=== PATIENT | male | born 1990 | race Caucasian/White ===

== ENCOUNTER 2018-05-07 19:09 | Emergency (ER) | payer SELFPAY ==
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
[2018-05-07 19:41] LABS: PLATELET COUNT 311 10^3/uL (150-400)
[2018-05-07 20:20] VITALS: BP 117/65
== END 2018-05-07 20:18 | disposition home or self-care (01) ==
DX: R56.9 Unspecified convulsions (principal); F17.200 Nicotine dependence, unspecified, uncomplicated
CPT/HCPCS: G0480

== ENCOUNTER 2018-05-13 07:25 | Emergency (ER) | payer SELFPAY ==
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
[2018-05-13 08:22] VITALS: BP 132/70
== END 2018-05-13 08:25 | disposition home or self-care (01) ==
DX: S60.221A Contusion of right hand, initial encounter (principal); F43.10 Post-traumatic stress disorder, unspecified; W22.8XXA Striking against or struck by other objects, initial encounter; Y99.9 Unspecified external cause status

== ENCOUNTER 2018-08-04 23:28 | Emergency (ER) | payer MEDICAID ==
[2018-08-04] MEDS ORDERED: LORazepam 1 MG TAB PO ONE (23:40)
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
[2018-08-05 00:03] LABS: PLATELET COUNT 221 10^3/uL (150-400)
[2018-08-05 07:00] VITALS: BP 112/64
--- NOTE | 2018-08-05 09:09 | ASMTTLCEVL ---
[facility] Evaluation - Basic Information Evaluation Start Date and 08/05/2018 07:00 AM Time Hospital Status Answers: M1 Hold 72-hr M1 Hold Start Date 08/04/2018 11:30 PM and Time Narrative Notes: The patient is a 28 y/o male, single, unemployedpursuing disability, with a hx of PTSD, anxiety, and depression. He is homeless and transient; relocated to [place] from [place] at the end of 2017. The patient arrived via EMS on an M1 hold placed by police after patient was reporting suicidal ideation with plan to "run into traffic." At the time of initial utox testing in the ed @ 23:58 the patient was positive for thc. The patient rated his suicidal ideation a 7/10. He denied intent and agreed to keep himself safe. The patient plans to go to [facility] for access the walk-in clinic for intake services. The patient missed an appointment for intake yesterday prior to admission due to a issue he encountered at [facility]. He reported that he was "kicked out" of [facility] for not having "proper identification" although he reported having his certificate. The patient suspected that he was asked to leave because "his girl is no longer there." The patient's fiance began a program/drug rehab for support and their communication is restricted. The patient reported chronic homelessness; 13 years. The patient was observed scrolling his phone during the evaluation. This film writer contacted [facility] to provide collateral and advocate for the client to establish outpatient services. Diagnosis History Notes: The patient reported that he was recently diagnosed with PTSD; due to "a lot of traumas." He refused to elaborate. Additionally, he endorsed symptoms of anxiety and depression. Prior suicide attempts Notes: The patient reported "too many times to count;" most recently two years ago"jumping into traffic/in front of train" before police intervention. Prior hospitalizations Notes: The patient reported that he was last hospitalized "years ago" in [place]. Although, he reported a history of multiple hospitalizations. He did refused to elaborate. Treatment Responses Notes: The patient's responses are not known due to lack of information regarding treatment. History of violence Notes: The patient denied any homicidal ideation or previous hx of violence. However, the patient reported feeling increasing prone to anger. Therapist: [facility] Psychiatrist: [facility] Medications (name, dosage, route, freq uency) Notes: None Allergies/Reaction Notes: no known allergies Sleep Notes: The patient reported that he is not able to fall/stay asleep. Appetite Notes: The patient reported decreased appetite. Medical/Surgical history Notes: The patient denied any significant medical/surgical hx. Substance use history (frequency, intensity, his tory, duration) Notes: The patient reported using thc "wax; daily." He refused to elaborate on dose, frequency, history, and duration. The patient emphasized that he uses thc as a sleep and anxiety aid. He last used thc on 08/04/18. Family composition Notes: The patient grew up in [place] and his family later relocated to [place] where they remain. He reported mutliple siblings; one brother six years ago. He stated, "It's been hell ever since." Family psychiatric/substance abuse history Notes: The patient did not report any family psychiatric/substance abuse hx. Developmental history Notes: The patient denied any developmental issues or learning disabilities. The patient denied ADD or ADHD. The patient denied any TBIs, concussions, or LOC. Abuse concerns Answers: None Marital status/children Notes: The patient is engaged with one child "on the way." Living situation Notes: The patient is chronically homeless and transient (from [place]); he utilizes [facility] services. Sexual history/orientation Notes: The patient identifies as heterosexual and is currently sexually active. Peer support/family strengths Notes: The patient endorsed having a supportive peer group. Education level/history Notes: The patient reported having attended high school. Work history Notes: The patient is unemployedpursuing disability. Notes: no known affiliation Legal Notes: The patient denied any legal issues. Latter-Day/Spiritual Notes: The patient reported none that would interfere with treatment. Leisure Notes: The patient reported spending time with his fiance. Collateral Notes: he collateral data was obtained from current and previous [facility] ed records/staff, 27-65 M1, [facility] report/records/staff. Patient's strengths Answers: Good Friend to Others (Please select at least TWO strengths): Willingness TLC Evaluation - Mental Status Exam Appearance: Answers: Appropriate Unclean Unkempt Eye Contact: Answers: Appropriate for Culture Good/Direct Mood: Answers: Euthymic Labile Affect: Answers: Appropriate Calm Congruent w/ Mood Guarded Indifferent Labile Behavior: Answers: Appropriate Cooperative Guarded Passive Talkative Speech: Answers: Relevant Logical Clear Coherent Thought Process: Answers: Organized Oriented Alert Goal Oriented Insight: Answers: Fair Judgement: Answers: Fair Manic Signs/Symptoms Answers: Irritability Depression Answers: Hopelessness Signs/Symptoms: Anxiety Signs/Symptoms Answers: Generalized Anxiety Hallucinations: Answers: None Pt reported to have Answers: Yes suicidal/self-injuring ideation/behavior? Pt reported to be making Answers: No suicidal/self-injuring threats? Pt reported to have Answers: No aggression/assault ideation/behavior? Pt reported to be making Answers: No aggression/assault threats? Pt exhibits inability to Answers: No care for self/grave disability? Ideation/behavior is Answers: No chronic? Patient has a specific Answers: No plan? Ideation involves Answers: No serious/lethal intent? History of Answers: Yes suicidal/self-injuring ideation, behavior, or threats? History of Answers: No aggressive/assaultive ideation, behavior, or threats? History of serious Answers: No physical harm to self/others while in treatment setting? [facility] Evaluation - Suicide/Homicide Risk Suicide Risk Factors: Answers: Alcohol/Heavy Drug Use Anxiety/Panic, Severe Financial Difficulties Lack/Loss of Employment Prior Suicide Attempt(s) Problems with Partner Unstable Living Situation Homicide/violence risk Answers: Heavy Drug Use factors: Current Suicidal Answers: Yes Ideation? Current Suicidal Ideation Answers: Yes in the Past 48 Hours? Current Suicidal Ideation Answers: No in the Past Month? Current Suicidal Answers: No Ideation, Worst Ever? Suicide Internal Answers: Absence of Psychosis Protective Factors: Linnea with Stress Suicide External Answers: Positive Therapeutic Protective Factors: Relationships Responsibility to Children Social Support Ranking of patient's Answers: Low suicidal risk: Ranking of patient's Answers: Low homicidal risk: [facility] Evaluation - Wrap-up BDI Total Score: N/A BDI Question #2 Score: N/A BDI Question #9 Score: N/A BSS Total Score: N/A AXIS I Diagnosis (include DSM-V and ICD-10 codes), must also be entered in [employer], which is the source of truth. Notes: Unspecified Depressive Disorder 311 (F32.9) Unspecified Anxiety Disorder 300.00 (F41.9) Cannabis Use Disorder, severe 304.30 (F12.20) R/O Post Traumatic Stress Disorder 309.81 (F43.10) Evaluation End Date and 08/05/2018 09:15 AM Time (HH:MM): Date Signed: 08/05/2018 09:08 AM Electronically Signed By:Marisela Pandey
--- NOTE | 2018-08-05 09:14 | ASMTTCLDSP ---
TLC Discharge Disposition Disposition: Answers: Discharge If Answers: Yes DISCHARGED: Patient/family given suicide hotline info & SAMHSA brochure? Disposition Notes: Notes: The patient stated commitment or ability to keep self safe and denied thoughts of self harm or harm to others. The patient expressed a desire to f/u with [facility].The patient was given local hotline information and SAMSHA brochure after an attempt." Discharge Concerns/Recommendations: Notes: In consultation with [facility] ED physician, Venkatesh Branham MD. Dr. Branham concurred that the patient does not appear to meet 27-65 criteria requiring psychiatric hospitalization as patient does not appear to be an imminent risk of harm to self/others/gravely disabled due to a mental illness condition. Dr. Branham provided order read back vacating M1 hold at 6:55 hrs. Was patient given the Answers: Not applicable Inpatient Behavioral Health Prohibited Belongings List while in the ED? Date and time M1 hold 08/05/2018 06:55 AM vacated (time format is hh:mm): Type of Hold: Answers: M1/72-hour Hold Hold initiated by: Answers: Police Date Signed: 08/05/2018 09:14 AM Electronically Signed By:Marisela Pandey
== END 2018-08-05 07:00 | disposition home or self-care (01) ==
DX: R45.851 Suicidal ideations (principal); F32.9 Major depressive disorder, single episode, unspecified; F43.10 Post-traumatic stress disorder, unspecified; G40.909 Epilepsy, unspecified, not intractable, without status epilepticus; F17.200 Nicotine dependence, unspecified, uncomplicated
CPT/HCPCS: 80305; G0480